=== PATIENT | male | born 1940 | race Caucasian/White ===

== ENCOUNTER → 2018-08-31 | Day surgery (SDC) | payer BC, MEDICARE ==
[2018-08-30 17:44] LABS: BASOPHILS # (AUTO) 0.1 (0.0-0.1); BASOPHILS % 0.7 % (0.0-1.0); EOSINOPHILS # (AUTO) 0.2 (0.0-0.4); EOSINOPHILS % 2.6 % (0.0-6.0); HEMATOCRIT 39.5 % (38.2-49.6); HEMOGLOBIN 13.4 g/dL (14.0-18.0); LYMPHOCYTES # (AUTO) 2.7 (1.0-3.2); LYMPHOCYTES % 35.1 % (18.0-39.1); MEAN CORPUSCULAR HEMOGLOBIN 31.3 pg (28-32); MEAN CORPUSCULAR HGB CONC 33.9 g/dL (31-35); MEAN CORPUSCULAR VOLUME 92.3 fL (81-99); MONOCYTES # (AUTO) 0.7 (0.2-0.8); MONOCYTES % 9.7 % (4.4-11.3); NEUTROPHILS # (AUTO) 3.9 (2.1-6.9); PLATELET COUNT 236 x10e3/uL (140-360); RED BLOOD COUNT 4.28 x10e6/uL (4.3-5.7); RED CELL DISTRIBUTION WIDTH 13.1 % (11.7-14.4)
[2018-08-30 17:59] LABS: ALBUMIN 4.6 g/dL (3.5-5.0); ALBUMIN/GLOBULIN RATIO 1.4 (0.8-2.0); ANION GAP 14.6 mmol/L (8-16); CALCIUM 10.7 mg/dL (8.4-10.2); CREATININE, SERUM 1.22 mg/dL (0.72-1.25); POTASSIUM 4.6 mmol/L (3.5-5.1)
[~2018-08-31] VITALS: Ht 185.4 cm; Wt 95.3 kg
[2018-08-31] VITALS (15 sets, daily range): BP systolic 95–143; BP diastolic 42–102
[~2018-08-31] MED LIST: ASPIRIN 325 MG TAB ONE; ATORVASTATIN CA40 MG PO; EPTIFIBATIDE 10 ML ONE; FENTANYL CITRATE/PF 100MCG/2 ML INJ ONE; HEPARIN SOD (PORCINE) 1000 UNIT/ML 30ML ONE; HEPARIN SOD/SOD CHLORIDE 0 ML ONE; HEPARIN SOD/SOD CHLORIDE 2,000 ML ONE; HYDROCHLOROTH12.5 MG PO; IOPAMIDOL 370 MG/ML 200 ML INFUS..BTL INJ ONE; LIDOCAINE 1% W/EPINEPHRINE 20 ML VIAL ONE; LIDOCAINE HCL 2% LOCAL 20 ML VIAL ONE; METFORMIN HCL500 M3 PO; METFORMIN HCL500 MG PO; METOPROLOL TART25 MG PO; MIDAZOLAM HCL 2 MG/2 ML VIAL ONE; NITROGLYCERIN/D5W 200 MCG/ML 250 ML ONE; PANTOPRAZOLE SO20 MG PO; PLAVIX75 MG PO; RANEXA500 MG PO; SODIUM CHLORIDE 0.9% 1000ML 1,000 ML ONE; TICAGRELOR 90 MG TABLET ONE; VERAPAMIL HCL 2.5 MG/ML 2 ML VIAL ONE; Z.0.LOSARTAN POTAS10 PO; Z.0.SIMVASTATIN40 MG PO; ZETIA10 MG PO; [UNRECOGNIZED DRUG - OTHER] PO
--- NOTE | 2018-08-31 09:50 | NUR ---
0950am Received pt in Rm #[id number] [facility] CSI circ fix Dr Mckinney. Vascade device Rt Groin Ox4 and appropriate Perrla Respiration even and unlabored 100% Room air. PPx4 Pt/Dp palpable and capillary refill brisk less 3sec. Skin and warm dry integrity appear adequate. Iv to left hand #20 no s/s infiltration. Abdomen soft and non tender denies necessity to defecate voided 350cc clear urine. Family at bedside. Pt verbalize understanding POC flat till 12 dc at 3pm. currently denies Cp or SOB po intake tolerated well. Rt Vascade device intact w/o bleeding or hematoma, ds/rn
--- NOTE | 2018-08-31 12:00 | NUR ---
1200 Rt Vascade site w/o hematoma. Position to left side Family at bedside Left hand iv. Tolerated meal well.Denies discomfort for Dc at 3pm. ds/rn
--- NOTE | 2018-08-31 12:30 | NUR ---
bedside report received from Elina SEBASTIAN. Alert oriented and appropriate, PERRLA, respirations even and unlabored to room air. Pulses x4 extremities equal and strong. Pedal pulses PT/DP palpable. Cap fill brisk < 3 sec. Skin warm and dry integrity appears intact. IV 20g to left hand presents healthy w/o s/s of infiltration or complaint. Abdomen soft and supple. pt offered toileting, denies need to urinate or defecate. Personal affects with patient. Family at bedside. Pt and family verbalizes understanding of POC for discharge. Currently w/o complaint of pain or need. bed low and locked, call light at side. assume of care -cgf
--- NOTE | 2018-08-31 13:15 | NUR ---
Report off to Elina SEBASTIAN. Review of recent events, Voided 400ml clear yellow urine. no gross changes within the hour. [place] [facility] [place]
--- NOTE | 2018-08-31 14:17 | Operative Report ---
DATE OF PROCEDURE: 08/31/2018 SURGEON: Stephen Mckinney MD INDICATION: Coronary artery disease, abnormal stress test. PROCEDURES PERFORMED: 1. Left heart catheterization, selective coronary angiography. 2. Atherectomy and stent placement to the circumflex artery. 3. Deployment of right groin Vascade closure device. 4. Attempted right coronary artery intervention for chronic total occlusion. COMPLICATIONS: None. RECOMMENDATIONS: Dual antiplatelet therapy for life. BLOOD LOSS: 5 mL. DESCRIPTION OF PROCEDURE: Access obtained in the right femoral artery. A 6-Arabic sheath was placed. Diagnostic coronary angiogram revealed heavily calcified coronary arteries. Left main mild disease. Left anterior descending artery stent was widely patent. Remaining vessel at 30% to 50% diffuse moderate disease. Circumflex mid heavily calcified 80% stenosis. Right coronary artery proximally in its midportion was completely occluded. Grade 4 collaterals fill the distal right coronary artery from the left coronary system. A decision was made to intervene on the circumflex artery. The patient received 10,000 units of intravenous heparin, Integrilin bolus and oral Brilinta and aspirin for anticoagulation. The left main was cannulated using an EBU 3.75 6-Arabic guiding catheter. ViperWire was advanced across the lesion. Orbital atherectomy using a CSI crown was performed. Balloon angioplasty with noncompliant 3 mm balloon was performed following which a single 3.0 x 18 mm Resolute Juanjose drug-eluting stent was deployed at 20 atmospheres, excellent end result, less than 10% residual stenosis, ROYAL-3 flow. No complications. Right groin sheath was removed. Vascade closure device applied. The patient was observed in the hospital for 6 hours, subsequently discharged home. Stephen Mckinney MD [facility]/MODL /[id number]
--- NOTE | 2018-08-31 15:15 | NUR ---
1515 completion of down time Called significant other Assist with dressing Denies c/o. Left iv removed site w/o s/s of infiltration. Coban dressing and sterile 2x2. Rt groin vascade site w/o hematoma or oozing. Dressing intact. Explained POC and and dc instruction copies with pt dc per wc stable no co escorted per [facility] employee, ds/rn
== END | disposition home or self-care (01) ==
LOC: CATH LAB 06:13
PROVIDERS: ATTEND Internal Medicine Interventional Cardiology
DX: I25.119 Atherosclerotic heart disease of native coronary artery with unspecified angina pectoris (principal); I25.82 Chronic total occlusion of coronary artery; R94.39 Abnormal result of other cardiovascular function study; I73.9 Peripheral vascular disease, unspecified; E78.5 Hyperlipidemia, unspecified; R60.0 Localized edema; Z01.812 Encounter for preprocedural laboratory examination; Z79.84 Long term (current) use of oral hypoglycemic drugs; Z79.02 Long term (current) use of antithrombotics/antiplatelets; Z79.82 Long term (current) use of aspirin; Z95.5 Presence of coronary angioplasty implant and graft; Z87.891 Personal history of nicotine dependence; Z82.49 Family history of ischemic heart disease and other diseases of the circulatory system
CPT/HCPCS: 36415; 80053; 85025; 92933; 93454; C1724; C1725 ×2; C1760; C1769; C1874; J1327; J1644; J2001; J2250; J7030; Q9967

== ENCOUNTER → 2019-10-20 | Outpatient (CLI) | payer BC, MEDICARE ==
[~2019-10-20] MED LIST changes: -ASPIRIN 325 MG TAB ONE; -EPTIFIBATIDE 10 ML ONE; -FENTANYL CITRATE/PF 100MCG/2 ML INJ ONE; -HEPARIN SOD (PORCINE) 1000 UNIT/ML 30ML ONE; -HEPARIN SOD/SOD CHLORIDE 0 ML ONE; -HEPARIN SOD/SOD CHLORIDE 2,000 ML ONE; -IOPAMIDOL 370 MG/ML 200 ML INFUS..BTL INJ ONE; -LIDOCAINE 1% W/EPINEPHRINE 20 ML VIAL ONE; -LIDOCAINE HCL 2% LOCAL 20 ML VIAL ONE; -MIDAZOLAM HCL 2 MG/2 ML VIAL ONE; -NITROGLYCERIN/D5W 200 MCG/ML 250 ML ONE; -SODIUM CHLORIDE 0.9% 1000ML 1,000 ML ONE; -TICAGRELOR 90 MG TABLET ONE; -VERAPAMIL HCL 2.5 MG/ML 2 ML VIAL ONE
--- NOTE | 2019-10-20 15:18 | Diagnostic Imaging Report ---
EXAM: Right upper quadrant abdominal ultrasound INDICATION: Right upper quadrant pain COMPARISON: None. TECHNIQUE: Transverse and longitudinal images of the right upper quadrant abdomen were obtained FINDINGS: Liver: Size: 16.1 cm in the right midclavicular line, normal Appearance: Increased echogenicity, smooth contour Mass: No focal masses Gallbladder: Gallstones in the gallbladder. No gallbladder wall thickening, gallbladder distention, or pericholecystic fluid. Negative sonographic Hagan's sign. Gallbladder wall measures up to 3 mm. Bile Ducts: Intrahepatic Ducts: No dilatation Extrahepatic Ducts: Common bile duct measures 4 mm Pancreas: Visualized portions of the pancreatic head, neck and proximal body are normal. Kidney: The right kidney measures 11.5 cm without evidence of hydronephrosis or stone. Vessels: Aorta: Visualized portions are normal Inferior Vena Cava: Visualized portions are normal Main Portal Vein: 0.9 cm, normal size with hepatopetal flow. Free Fluid: No ascites or pleural effusion IMPRESSION: Cholelithiasis without sonographic evidence of cholecystitis. Hepatic steatosis. Signed by: Ruben Ash MD on 10/20/2019 3:15 PM
== END ==
LOC: US 13:39
PROVIDERS: ATTEND Internal Medicine
DX: R10.10 Upper abdominal pain, unspecified (principal)
CPT/HCPCS: 76705

== ENCOUNTER → 2019-11-25 | Day surgery (SDC) | payer MEDICARE, BC ==
[2019-11-21 16:57] LABS: BASOPHILS # (AUTO) 0.1 (0.0-0.1); BASOPHILS % 0.8 % (0.0-1.0); EOSINOPHILS # (AUTO) 0.3 (0.0-0.4); HEMATOCRIT 35.3 % (38.2-49.6); HEMOGLOBIN 11.1 g/dL (14.0-18.0); LYMPHOCYTES % 40.9 % (18.0-39.1); MEAN CORPUSCULAR HEMOGLOBIN 26.3 pg (28-32); MEAN CORPUSCULAR HGB CONC 31.4 g/dL (31-35); MEAN CORPUSCULAR VOLUME 83.6 fL (81-99); MONOCYTES # (AUTO) 0.6 (0.2-0.8); MONOCYTES % 8.6 % (4.4-11.3); NEUTROPHILS # (AUTO) 3.3 (2.1-6.9); NEUTROPHILS % 45.3 % (38.7-80.0); PLATELET COUNT 231 x10e3/uL (140-360); RED BLOOD COUNT 4.22 x10e6/uL (4.3-5.7); RED CELL DISTRIBUTION WIDTH 15.4 % (11.7-14.4)
[2019-11-21 17:29] LABS: ALANINE AMINOTRANSFERASE 36 IU/L (0-55); ALBUMIN 4.5 g/dL (3.5-5.0); ALBUMIN/GLOBULIN RATIO 1.6 (0.8-2.0); ALKALINE PHOSPHATASE 61 IU/L (40-150); ANION GAP 16.2 mmol/L (8-16); BLOOD UREA NITROGEN 16 mg/dL (7-26); BUN/CREATININE RATIO 16 (6-25); CALCIUM 11.1 mg/dL (8.4-10.2); CARBON DIOXIDE 23 mmol/L (22-29); CHLORIDE 104 mmol/L (98-107); CREATININE, SERUM 0.98 mg/dL (0.72-1.25); EST GLOMERULAR FILTRATION RATE > 60 ML/MIN (60-); GLUCOSE 93 mg/dL (74-118); POTASSIUM 4.2 mmol/L (3.5-5.1); SODIUM 139 mmol/L (136-145)
[~2019-11-25] VITALS: Ht 185.4 cm; Wt 93.0 kg
[~2019-11-25] MED LIST changes: +ALPRAZOLAM 0.5 MG TAB ONE; +ASPIR 8181 MG PO; +DIPHENHYDRAMINE HCL 25 MG CAP ONE; +FENTANYL CITRATE/PF 100MCG/2 ML INJ ONE; +HEPARIN SOD/SOD CHLORIDE 2,000 ML ONE; +IOPAMIDOL 370 MG/ML 200 ML INFUS..BTL INJ ONE; +LIDOCAINE HCL 2% LOCAL 20 ML VIAL ONE; +MIDAZOLAM HCL 2 MG/2 ML VIAL ONE; +SODIUM CHLORIDE 0.9% 1000ML 1,000 ML ONE; +VERAPAMIL HCL 2.5 MG/ML 2 ML VIAL ONE; +VITAMIN D3125 MCG PO
[2019-11-25 11:30] VITALS: BP 153/86
--- NOTE | 2019-11-25 21:30 | Operative Report ---
DATE OF PROCEDURE: 11/25/2019 SURGEON: Stephen Mckinney MD INDICATIONS: Coronary artery disease, abnormal stress test, and angina. PROCEDURES PERFORMED: 1. Ultrasound-guided access in the right radial artery with sheath placement. 2. Conscious sedation 35 minutes. 3. Left heart catheterization, selective coronary angiography. 4. Deployment of right wrist TR band. COMPLICATIONS: None. RECOMMENDATIONS: Medical therapy. DESCRIPTION OF PROCEDURE: Access obtained in the right radial artery using ultrasound guidance. A 5-Surinamese sheath was placed. Coronary angiography demonstrated a dual origin of the left coronary system with patent stent in the left anterior descending artery, moderate 30% to 50% stenosis in the left anterior descending and circumflex arteries. Right coronary artery was heavily calcified, completely occluded in its midportion with grade 3/4 collaterals from the left coronary system filling the right posterior descending artery that was also diffusely diseased. No intervention deemed necessary. Right wrist TR band applied. The patient discharged home same day. MD MARY LOU Scott/MODL /[id number]
== END | disposition home or self-care (01) ==
LOC: CATH LAB 11:10
PROVIDERS: ATTEND Internal Medicine Interventional Cardiology
DX: I25.708 Atherosclerosis of coronary artery bypass graft(s), unspecified, with other forms of angina pectoris (principal); Z95.1 Presence of aortocoronary bypass graft; I11.0 Hypertensive heart disease with heart failure; I50.9 Heart failure, unspecified; I49.5 Sick sinus syndrome; F17.210 Nicotine dependence, cigarettes, uncomplicated; Z01.812 Encounter for preprocedural laboratory examination; Z11.59 Encounter for screening for other viral diseases; Z79.84 Long term (current) use of oral hypoglycemic drugs; Z79.02 Long term (current) use of antithrombotics/antiplatelets; Z79.82 Long term (current) use of aspirin; Z82.49 Family history of ischemic heart disease and other diseases of the circulatory system
CPT/HCPCS: 36415 ×2; 80053; 82948; 85025; 87635; 93455; C1769; C1887; J2001; J2250; J3010; J7030; Q9967; 93454; 99152

== ENCOUNTER 2020-10-09 18:08 | Emergency (ER) | payer BC, MEDICARE ==
[~2020-10-09] VITALS: Ht 185.4 cm; Wt 93.0 kg
[~2020-10-09 18:08] MED LIST changes: -ALPRAZOLAM 0.5 MG TAB ONE; -DIPHENHYDRAMINE HCL 25 MG CAP ONE; -FENTANYL CITRATE/PF 100MCG/2 ML INJ ONE; -HEPARIN SOD/SOD CHLORIDE 2,000 ML ONE; -IOPAMIDOL 370 MG/ML 200 ML INFUS..BTL INJ ONE; -LIDOCAINE HCL 2% LOCAL 20 ML VIAL ONE; -MIDAZOLAM HCL 2 MG/2 ML VIAL ONE; -SODIUM CHLORIDE 0.9% 1000ML 1,000 ML ONE; -VERAPAMIL HCL 2.5 MG/ML 2 ML VIAL ONE
[2020-10-09 18:54] LABS: BASOPHILS % 0.4 % (0.0-1.0); EOSINOPHILS # (AUTO) 0.1 (0.0-0.4); EOSINOPHILS % 1.8 % (0.0-6.0); HEMATOCRIT 38.9 % (38.2-49.6); HEMOGLOBIN 12.4 g/dL (14.0-18.0); LYMPHOCYTES % 14.2 % (18.0-39.1); MEAN CORPUSCULAR HEMOGLOBIN 25.4 pg (28-32); MEAN CORPUSCULAR HGB CONC 31.9 g/dL (31-35); MEAN CORPUSCULAR VOLUME 79.6 fL (81-99); MONOCYTES # (AUTO) 0.5 (0.2-0.8); MONOCYTES % 7.5 % (4.4-11.3); NEUTROPHILS # (AUTO) 5.1 (2.1-6.9); NEUTROPHILS % 75.5 % (38.7-80.0); PLATELET COUNT 282 x10e3/uL (140-360); RED BLOOD COUNT 4.89 x10e6/uL (4.3-5.7); RED CELL DISTRIBUTION WIDTH 14.7 % (11.7-14.4)
[2020-10-09 19:17] LABS: ALBUMIN 4.5 g/dL (3.5-5.0); ALBUMIN/GLOBULIN RATIO 1.3 (0.8-2.0); CALCIUM 9.8 mg/dL (8.4-10.2); CREATININE, SERUM 1.18 mg/dL (0.72-1.25)
[2020-10-09 20:41] LABS: CREATINE KINASE MB 1.5 ng/mL (0-5.0)
== END 2020-10-09 23:47 | disposition home or self-care (01) ==
LOC: ER 18:30
DX: R07.89 Other chest pain (principal); R05 Cough; J40 Bronchitis, not specified as acute or chronic; Z20.822 Contact with and (suspected) exposure to COVID-19; E11.65 Type 2 diabetes mellitus with hyperglycemia; I10 Essential (primary) hypertension; E78.5 Hyperlipidemia, unspecified; K21.9 Gastro-esophageal reflux disease without esophagitis; R94.31 Abnormal electrocardiogram [ECG] [EKG]
CPT/HCPCS: 36415; 71045; 80053; 82550; 82553; 84484; 85025; 93005; 99283; U0002

== ENCOUNTER → 2022-08-22 | Outpatient (CLI) | payer BC, MEDICARE | LOC: US 10:24 | PROVIDERS: ATTEND Internal Medicine | DX: K80.20 Calculus of gallbladder without cholecystitis without obstruction (principal) | CPT/HCPCS: 76705 ==